=== PATIENT | female | born 1955 | race Two or more races ===

== ENCOUNTER 2019-12-06 09:35 | Emergency (ER) | payer MEDICARE ==
[2019-12-06] MEDS ORDERED: LABETALOL HCL INJ 20 MG/4 ML DISP.SYRIN IV ONE (11:04)
[2019-12-06 11:08] LABS: ABSOLUTE LYMPHOCYTES (AUTO) 1.6 10^3/uL (0.5-4.7); HEMATOCRIT 40.1 % (36.0-47.0); TOTAL CELLS COUNTED % (AUTO) 100 %
--- NOTE | 2019-12-06 11:11 | ER Document Report ---
ED General - General Chief Complaint: Weakness Stated Complaint: LOSS OF VISION Time Seen by Provider: 12/06/19 10:22 Primary Care Provider: KYA AUGUSTE NP [Primary Care Provider] - Follow up as needed - [facility] Notes: Chief complaint: Visual impairment left eye 64-year-old female with longstanding history of hypertension and cigarette smoking saw her stencil inspector, Dr. Phillips, on November 29 (6 days ago) after she experienced an insidious loss of peripheral vision of the left eye. On initial evaluation the stencil inspector told her he suspected a retinal tear but after further evaluation he determined that this was likely due to retinal ischemia with a partial retinal artery occlusion. He recommended full vascular work-up by her primary care physician. She is not yet had this evaluation. She reports that her visual symptoms are unchanged. She denies any motor or sensory symptoms. She denies headache. She denies any difficulty with speech, swallowing or ambulation. She is taking lisinopril for her blood pressure but apparently is marginally compliant with this. She is also supposed to be taking 25 mg of hydrochlorothiazide daily but says she does not take this because it tends to cause cramping of her legs. She is on no other antihypertensive medicine. She continues to smoke about 5 cigarettes/day although she has been advised to quit previously. She denies any known history of diabetes or hyperlipidemia. She notes multiple family members have experienced stroke in the past. She denies any known history of cardiac disease other than her hypertension. - Related Data Allergies/Adverse Reactions: No Known Allergies Allergy (Verified 12/06/19 09:46) Past Medical History - General Information source: Patient - Social History Smoking Status: Current Every Day Smoker Frequency of alcohol use: None Lives with: Family Family History: CVA, Hypertension Patient has suicidal ideation: No Patient has homicidal ideation: No - Past Medical History Cardiac Medical History: Reports: Hx Hypertension Pulmonary Medical History: Denies: Hx Asthma Neurological Medical History: Denies: Hx Cerebrovascular Accident, Hx Migraine, Hx Seizures Endocrine Medical History: Denies: Hx Diabetes Mellitus Type 1, Hx Diabetes Mellitus Type 2 Renal/ Medical History: Reports: Hx Kidney Stones Past Surgical History: Reports: Hx Tubal Ligation Review of Systems - Review of Systems Notes: Constitutional: Negative for fever. HENT: Negative for sore throat. Eyes: As per HPI. Cardiovascular: Negative for chest pain. Respiratory: Negative for shortness of breath. Gastrointestinal: Negative for abdominal pain, vomiting or diarrhea. Genitourinary: Negative for dysuria. Musculoskeletal: Negative for back pain. Skin: Negative for rash. Neurological: As per HPI. 10 point ROS negative except as marked above and in HPI. Physical Exam - Vital signs Vitals: Temp Pulse Resp BP Pulse Ox 98.1 F 76 18 203/92 H 96 12/06/19 09:43 12/06/19 09:43 12/06/19 09:43 12/06/19 09:43 12/06/19 09:43 - Notes Notes: GENERAL: Well-developed well-nourished appearing in no acute distress. SKIN: Good turgor no rashes. HEAD: Normocephalic atraumatic. EYES: PERRLA. EOMI. Conjunctivae and sclerae clear. Visual field cuts of the left eye upper and lower outer quadrants. EARS: CANALS AND TMS CLEAR. NOSE: CLEAR. MOUTH: Moist mucosa. Good dentition. No stridor or edema. No drooling. NECK: Supple. No masses or thyromegaly. No adenopathy. Carotids 2+ without bruits. No JVD. BACK: Symmetrical without tenderness. CHEST: Respirations unlabored. Breath sounds clear and symmetrical. HEART: Regular rhythm. No murmur gallop or rub. ABDOMEN: Soft nontender without masses, organomegaly or rebound. Bowel sounds normally active. No bruits. GENITALIA: Deferred. EXTREMITIES: No edema. No calf tenderness. Cap refill less than 1.5 seconds. Dorsalis pedis and posterior tibial pulses 3+ and symmetrical. NEUROLOGICAL: GCS 15. Alert and oriented x3. Normal gait. Fluent speech. Cranial nerves II through XII intact. Sensorimotor and cerebellar normal. Normal tone. PSYCHIATRIC: Appropriate affect. Course - Re-evaluation Re-evalutation: 12/06/19 13:27 This lady appears to have had a completed retinal artery occlusion. This occurred probably 6 days ago. Her head CT noncontrast today is negative. I do not hear any cardiac murmur or bruits over the carotid arteries. Her neurologic exam is remarkable only for the field deficit previously documented by ophthalmo logy in the left eye. Her blood pressure was moderately elevated over 200 systolic here. She is noncompliant with a diuretic hydrochlorothiazide previously prescribed for her. She is continuing to take lisinopril. I gave her 1 dose of IV labetalol 10 mg here and her pressure is down to 128 systolic. CBC and comprehensive metabolic profile are normal. I have given this lady a dose of Plavix 300 mg here. I encouraged her to stay on aspirin 81 mg daily and I will add Plavix 60 mg daily as well as atorvastatin 20 mg daily and Toprol XL 25 mg daily. I have strongly advised her to stop smoking. I told her she could return here immediately for new or worsening symptoms. She will otherwise follow-up with her primary care provider within the next 2 to 3 days for recheck and they can also schedule her for an outpatient carotid duplex scan and echocardiogram. - Vital Signs Vital signs: Temp Pulse Resp BP Pulse Ox 98.1 F 76 14 134/71 H 97 12/06/19 09:43 12/06/19 09:43 12/06/19 13:15 12/06/19 13:15 12/06/19 13:15 - Laboratory Result Diagrams: 12/06/19 10:40 12/06/19 10:40 Laboratory results interpreted by me: 12/06/19 10:40 RDW 14.3 H - Diagnostic Test Radiology results interpreted by me: 12/06/19 13:[address] per radiologist. - EKG Interpretation by Me Additional EKG results interpreted by me: 12/06/19 13:26 Twelve-lead EKG from 1132 hrs. is reviewed contemporaneously by me demonstrating a normal sinus rhythm with a rate of 66 and QRS axis of 28 degrees with normal intervals and no acute ST/T wave changes. Discharge - Discharge Clinical Impression: Essential hypertension, Cigarette smoker Retinal artery occlusion, branch Qualifiers: Laterality: left Qualified Code(s): H34.232 - Retinal artery branch occlusion, left eye Condition: Stable Disposition: HOME, SELF-CARE Additional Instructions: See your doctor within the next 2 to 3 days for additional outpatient evaluation with the following studies: Carotid duplex scan Echocardiogram You have strongly encouraged to stop smoking as continuation of smoking greatly increases your risk of stroke. Continue taking your current blood pressure medicine. Continue aspirin 81 mg/day. New prescriptions are provided today for the following medications: Plavix Atorvastatin Toprol XL. Nicotine patch Return here as needed for new or worsening symptoms: New neurological symptoms or overall worsening Prescriptions: Atorvastatin Calcium [Lipitor 20 mg Tablet] 20 mg PO QHS #30 tablet Nicotine [Nicoderm 21 mg/24 Hr Transderm Patch] 1 patch TD DAILY #30 patch.td24 Clopidogrel Bisulfate [Plavix 75 mg Tablet] 75 mg PO DAILY #30 tablet Metoprolol Succinate [Toprol Xl 25 mg Tab.sr] 25 mg PO DAILY #30 tab.sr.24h Forms: Smoking Cessation Education, Elevated Blood Pressure Referrals: KYA AUGUSTE NP [Primary Care Provider] - Follow up as needed
[2019-12-06 11:17] LABS: ALBUMIN 3.9 g/dL (3.5-5.0); ALKALINE PHOSPHATASE 101 U/L (38-126); ANION GAP 5 (5-19); ASPARTATE AMINO TRANSFERASE 23 U/L (14-36); BILIRUBIN,DIRECT 0.2 mg/dL (0.0-0.4); BILIRUBIN,TOTAL 0.6 mg/dL (0.2-1.3); BLOOD UREA NITROGEN 14 mg/dL (7-20); CALCIUM 9.2 mg/dL (8.4-10.2); CARBON DIOXIDE 30 mmol/L (22-30); CHLORIDE 104 mmol/L (98-107); GLUCOSE 96 mg/dL (75-110); POTASSIUM 3.8 mmol/L (3.6-5.0); TOTAL PROTEIN 7.3 g/dL (6.3-8.2)
[2019-12-06 11:22] LABS: ABSOLUTE MONOCYTES (AUTO) 0.5 10^3/uL (0.1-1.4); ABSOLUTE NEUT (AUTO) 5.2 10^3/uL (1.7-8.2); BASOPHILS % (AUTO) 0.4 % (0-2); EOSINOPHILS % (AUTO) 0.3 % (0-6); HEMOGLOBIN 13.5 g/dL (12.0-15.5); LYMPHOCYTES % (AUTO) 21.9 % (13-45); MEAN CORPUSCULAR HEMOGLOBIN 29.1 pg (27.0-33.4); MEAN CORPUSCULAR HGB CONC 33.8 g/dL (32.0-36.0); MEAN CORPUSCULAR VOLUME 86 fl (80-97); MONOCYTES % (AUTO) 7.2 % (3-13); PLATELET COUNT 409 10^3/uL (150-450); RED BLOOD COUNT 4.65 10^6/uL (3.72-5.28); RED CELL DISTRIBUTION WIDTH 14.3 % (11.5-14.0); SEGMENTED NEUTROPHILS % (AUTO) 70.2 % (42-78); WHITE BLOOD COUNT 7.4 10^3/uL (4.0-10.5)
--- NOTE | 2019-12-06 11:30 | RADIOLOGY REPORT (SQ) ---
EXAM DESCRIPTION: CT HEAD WITHOUT IMAGES COMPLETED DATE/TIME: 12/06/2019 11:22 am REASON FOR STUDY: stroke COMPARISON: None. TECHNIQUE: Axial images acquired through the brain without intravenous contrast. Images reviewed wi th bone, brain and subdural windows. Additional sagittal and coronal reconstructions were generated. Images stored on PACS. All CT scanners at this facility use dose modulation, iterative reconstruction, and/or weight based d osing when appropriate to reduce radiation dose to as low as reasonably achievable (ALARA). [facility]: Dose Right [facility]: CareDose [facility]: Dose Right [facility]: Teradose 4D [facility]: OncoGenex RADIATION DOSE: CT Rad equipment meets quality standard of care and radiation dose reduction techniq ues were employed. CTDIvol: 53.2 mGy. DLP: 911 mGy-cm. mGy. LIMITATIONS: None. FINDINGS: VENTRICLES: Normal size and contour. CEREBRUM: No masses. No hemorrhage. No midline shift. No evidence for acute infarction. Normal gra y/white matter differentiation. No areas of low density in the white matter. CEREBELLUM: No masses. No hemorrhage. No alteration of density. No evidence for acute infarction. EXTRAAXIAL SPACES: No fluid collections. No masses. ORBITS AND GLOBE: No intra- or extraconal masses. Normal contour of globe without masses. CALVARIUM: No fracture. PARANASAL SINUSES: No fluid or mucosal thickening. SOFT TISSUES: No mass or hematoma. OTHER: No other significant finding. IMPRESSION: NORMAL BRAIN CT WITHOUT CONTRAST. EVIDENCE OF ACUTE STROKE: NO. COMMENT: Quality ID # [id number]: Final reports with documentation of one or more dose reduction techniques (e.g., Automated exposure control, adjustment of the mA and/or kV according to patient size, use of iterative reconstruction technique) TECHNICAL DOCUMENTATION: JOB ID: [id number] 2010 [employer]- All Rights Reserved Reading location - IP/workstation name: [email or web address]
[2019-12-06] MEDS ORDERED: CLOPIDOGREL BISULFATE 300 MG TABLET PO ONE (13:14)
[2019-12-06 13:54] VITALS: BP 138/80
--- NOTE | 2019-12-07 09:08 | EKG REPORT ---
SEVERITY:- ABNORMAL ECG - SINUS RHYTHM PROBABLE LEFT ATRIAL ABNORMALITY PROBABLE ANTEROSEPTAL INFARCT, OLD : Confirmed by: Ana Arreguin MD 07-Dec-2019 09:07:36
== END 2019-12-06 14:02 | disposition home or self-care (01) ==
LOC: ER 09:35
DX: H34.232 Retinal artery branch occlusion, left eye (principal); I10 Essential (primary) hypertension; T50.2X6A Underdosing of carbonic-anhydrase inhibitors, benzothiadiazides and other diuretics, initial encounter; Z91.128 Patient's intentional underdosing of medication regimen for other reason; Z91.14 Patient's other noncompliance with medication regimen; F17.210 Nicotine dependence, cigarettes, uncomplicated; Z79.899 Other long term (current) drug therapy; Z82.3 Family history of stroke; Z82.49 Family history of ischemic heart disease and other diseases of the circulatory system
CPT/HCPCS: 93005; 99284; 96374; 36415; 83735; 85025; 80053; 70450; 93010; A9270; J3490

== ENCOUNTER → 2019-12-22 | Outpatient (CLI) | payer MEDICARE ==
--- NOTE | 2019-12-22 17:28 | RADIOLOGY REPORT (SQ) ---
EXAM DESCRIPTION: CAROTID DOPPLER IMAGES COMPLETED DATE/TIME: 12/22/2019 4:00 pm REASON FOR STUDY: LT EYE RETINAL ARTERY OCCLUSION H34.12 CENTRAL RETINAL ARTERY OCCLUSION, LEFT EYE COMPARISON: None. TECHNIQUE: Grayscale ultrasound, Doppler velocity and spectra, and color Doppler images acquired of the extra-cranial carotid and vertebral arteries. Images stored on PACS. LIMITATIONS: None. FINDINGS: RIGHT CAROTID CCA Velocities: Within normal limits. ICA Velocities Peak systolic 0.97 m/s. End diastolic 0.37 m/s. Proximal ICA/CCA peak systolic ratio 1.6. Minimal plaque. No significant luminal narrowing. LEFT CAROTID CCA Velocities: Within normal limits. ICA Velocities Peak systolic 0.61 m/s. End diastolic 0.23 m/s. Proximal ICA/CCA peak systolic ratio 1.01. Minimal plaque. No significant luminal narrowing. VERTEBRAL ARTERIES: Antegrade flow. Normal waveforms. SUBCLAVIAN ARTERIES: No finding. OTHER: No other significant finding. IMPRESSION: NO HEMODYNAMICALLY SIGNIFICANT STENOSIS. COMMENT: Quality ID #[id number]: Velocity criteria are extrapolated from the diameter data as defined by t he Society of Radiologists in Ultrasound Consensus Conference. Radiology 2003: 229; 340-346. TECHNICAL DOCUMENTATION: JOB ID: [id number] 2010 [employer]- All Rights Reserved Reading location - IP/workstation name: [email or web address]
--- NOTE | 2019-12-22 23:43 | XCELERA REPORT ---
[address] [address] Transthoracic Echocardiogram Report Name: ANA LUISA PATEL Age: 64 yrs Gender: Female : 1955 Patient Status: Outpatient Patient Location: Study Date: 12/22/2019 02:30 PM Height: 67 in Weight: 150 lb BSA: 1.8 m2 Procedure: A two-dimensional transthoracic echocardiogram with color flow and Doppler was performed. The study was technically difficult with many images being suboptimal in quality. Reason For Study: HTN History: HTN. Ordering Physician: KYA AUGUSTE Performed By: Matty Tristan Interpretation Summary The left ventricle is normal in size. LV EF is > than 65% Left ventricular systolic function is normal. Doppler measurements suggest normal left ventricular diastolic function The left ventricular wall motion is normal. There is no thrombus. No ASD ,VSD,or PFO seen. The right ventricle is normal in size and function. The right ventricle is not well visualized secondary to technical limitations The right atrium is normal. There is no evidence of mitral valve prolapse. There is no vegetation seen on the mitral valve. There is no mitral valve stenosis. There is a trace to mild amount of mitral regurgitation There is no aortic valvular vegetation. There is no aortic valve stenosis No aortic regurgitation is present. There is no tricuspid stenosis. There is a trace amount of tricuspid regurgitation Upper normal to mild pulmonary hypertension.RVSP is 30 to 35 mm of Hg , with RA mean of 5 to 10. There is no pulmonic valvular stenosis. There is no pulmonic valvular regurgitation. The aortic root is normal size. The inferior vena cava appeared normal and decreased > 50% with respiration (RAP 5-10 mmHg) There is no pericardial effusion. MMode/2D Measurements & Calculations RVDd: 2.0 cm LVIDd: 4.2 cm FS: 44.7 % Ao root diam: 2.9 cm IVSd: 1.1 cm LVIDs: 2.3 cm EDV(Teich): 78.9 ml Ao root area: 6.8 cm2 LVPWd: 0.95 cm ESV(Teich): 18.6 ml LA dimension: 2.6 cm EF(Teich): 76.4 % Doppler Measurements & Calculations MV E max jeremi: MV P1/2t max jeremi: Ao V2 max: LV V1 max P.1 cm/sec 103.8 cm/sec 110.5 cm/sec 3.3 mmHg MV A max jeremi: MV P1/2t: 76.6 msec Ao max P.9 mmHg LV V1 max: 100.7 cm/sec MVA(P1/2t): 2.9 cm2 91.3 cm/sec MV E/A: 1.1 MV dec slope: LV dP/dt: 649.0 mmHg/s 396.8 cm/sec2 MV dec time: 0.25 sec PA V2 max: TR max jeremi: MV P1/2t-pr_phl: 80.0 cm/sec 250.2 cm/sec 76.6 msec PA max P.6 mmHgTR max P.0 mmHg Left Ventricle The left ventricle is normal in size. There is normal left ventricular wall thickness. LV EF is > than 65%. Left ventricular systolic function is normal. Doppler measurements suggest normal left ventricular diastolic function. The left ventricular wall motion is normal. There is no thrombus. No ASD ,VSD,or PFO seen. Right Ventricle The right ventricle is normal in size and function. The right ventricle is not well visualized secondary to technical limitations. Atria The right atrium is normal. The left atrial size is normal. Mitral Valve There is no evidence of mitral valve prolapse. There is no vegetation seen on the mitral valve. There is no mitral valve stenosis. There is a trace to mild amount of mitral regurgitation. Aortic Valve There is no aortic valvular vegetation. There is no aortic valve stenosis. No aortic regurgitation is present. Tricuspid Valve There is no tricuspid stenosis. There is a trace amount of tricuspid regurgitation. Upper normal to mild pulmonary hypertension.RVSP is 30 to 35 mm of Hg , with RA mean of 5 to 10. Pulmonic Valve There is no pulmonic valvular stenosis. There is no pulmonic valvular regurgitation. Great Vessels The aortic root is normal size. The inferior vena cava appeared normal and decreased > 50% with respiration (RAP 5-10 mmHg). Effusions There is no pericardial effusion. : KYA AUGUSTE Lakshmi
== END ==
LOC: SP 13:48
PROVIDERS: ATTEND Nurse Practitioner Family
DX: H34.12 Central retinal artery occlusion, left eye (principal)
CPT/HCPCS: 93306; 93880